=== PATIENT | female | born 1935 | race Caucasian/White ===

== ENCOUNTER 2018-02-05 12:49 | Emergency (ER) | payer MEDICARE, MEDICAID, SELFPAY ==
[2018-02-05 12:53] VITALS: BP 152/96; PULSE 97; RESP 18; TEMP 36.9; O2SAT 97; BMI 51.9
[2018-02-05 13:08] VITALS: O2SAT 100
--- NOTE | 2018-02-05 13:50 | CT_ITS ---
STUDY: CT CHEST WITHOUT CONTRAST REASON FOR EXAM: Female, 82 years old. FALL. RADIATION DOSAGE (If Supplied By Facility): CTDIvol = ( 27.63 ) mGy, DLP = ( 966.10 ) mGycm TECHNIQUE: Transaxial imaging was performed without the administration of intravenous contrast material. Individualized dose optimization techniques were used for this CT. COMPARISON: None. FINDINGS: The lungs are normal. There is trace right pleural effusion There is a small pericardial effusion. Normal mediastinum. Normal hilar regions. Normal unenhanced pulmonary arteries. Normal aorta arch and descending thoracic aorta. There is a transverse mid body fracture involving anterior and posterior endplate at T7 (sagittal image #230 series 602). There are chronic rib fractures on the right. CT/Chest without Contrast IMPRESSION: No consolidation or pneumothorax. Trace right pleural effusion. Unstable T7 fracture. Further evaluation with MRI can be obtained. N.B. : The above information has been verbally conveyed by Adelaide Ayala MD to Nereyda Muñoz on 02/05/2018 15:16:56 (ET). Electronically Signed: Adelaide Ayala MD at 15:18 EDT Tel , Service support , N.B. : The above information has been verbally conveyed by Adelaide Ayala MD to Nereyda Muñoz on 02/05/2018 15:16:56 (ET).
--- NOTE | 2018-02-05 13:50 | CT_ITS ---
STUDY: CT BRAIN WITHOUT CONTRAST REASON FOR EXAM: Female, 82 years old. FALL RADIATION DOSAGE (If Supplied By Facility): CTDIvol = ( 20.80 ) mGy, DLP = ( 384.27 ) mGycm TECHNIQUE: Transaxial CT imaging of the brain was performed without administration of intravenous contrast material. Individualized dose optimization techniques were used for this CT. COMPARISON: None. FINDINGS: There is a large frontal scalp hematoma. There is cerebral atrophy with widening of the extra-axial spaces and ventricular dilatation. There are areas of decreased attenuation within the white matter tracts of the supratentorial brain, consistent with microvascular disease changes. There is no intracranial hemorrhage. There are no findings of an acute ischemic infarction. There is bilateral nasal bone fractures. CT/Brain/Head without Contrast IMPRESSION: Large frontal scalp hematoma. No demonstrated intracranial hemorrhage. Bilateral nasal bone fractures. Electronically Signed: Adelaide Ayala MD at 14:58 EDT Tel , Service support ,
--- NOTE | 2018-02-05 13:50 | CT_ITS ---
STUDY: CT CERVICAL SPINE WITHOUT CONTRAST REASON FOR EXAM: Female, 82 years old. FALL RADIATION DOSAGE (If Supplied By Facility): CTDIvol = ( 38.08 ) mGy, DLP = ( 833.44 ) mGycm TECHNIQUE: The patient was scanned in a multi detector CT scanner. High resolution transaxial imaging was performed. Sagittal and coronal images were reconstructed. Individualized dose optimization techniques were used for this CT. COMPARISON: None FINDINGS: There is normal cervical lordosis. There are no fractures of the cervical spine. The atlantoaxial relationships are normal.. Prevertebral soft tissues are within normal limits. There is multilevel endplate spondylosis of the vertebrae. There is multi-level degenerative disc disease with multi-level disc space narrowing. Normal visualized paraspinous soft tissue structures. CT/Spine Cervical without Contras IMPRESSION: No demonstrated fractures. Multilevel degenerative changes. Electronically Signed: Adelaide Ayala MD at 15:01 EDT Tel , Service support ,
--- NOTE | 2018-02-05 13:51 | CT_ITS ---
STUDY: CT ABDOMEN AND PELVIS WITHOUT CONTRAST REASON FOR EXAM: Female, 82 years old. FALL. RADIATION DOSAGE (If Supplied By Facility): CTDIvol = ( 27.63 ) mGy, DLP = ( 1361.57 ) mGycm TECHNIQUE: Transaxial images were obtained from the dome of the diaphragm to the symphysis pubis without oral contrast, and without intravenous contrast. Sagittal and coronal images were reconstructed. Individualized dose optimization techniques were used for this CT. COMPARISON: None. FINDINGS: The visualized lung bases are unremarkable. The visualized portions of the heart are within normal limits. Normal liver. There is non-visualization of the gallbladder, which may be secondary to either contraction or a prior cholecystectomy. There are multiple benign calcified granulomata of the spleen. Normal pancreas. Normal bilateral adrenal glands. 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 There is no hydronephrosis. There are surgical sutures at the stomachPatency Normal small intestine. Normal colon. The appendix is visualized and appears normal. There is diffuse atherosclerotic calcification of the abdominal aorta, without a demonstrated aneurysm. Normal inferior vena cava. Normal retroperitoneum. The bladder is decompressed with a Lu catheter. Normal abdominal wall. There are diffuse degenerative changes of the visualized lumbar spine. CT/Abdomen/Pelvis without Cont IMPRESSION: No acute intra-abdominal or intrapelvic abnormality. Horseshoe kidney with small nonobstructing kidney stones. Electronically Signed: Adelaide Ayala MD at 15:06 EDT Tel , Service support ,
[2018-02-05] MEDS: Ondansetron 4 MG/2 ML Vial IV ×2 (14:11→15:57)
[2018-02-05] MEDS: Morphine 2 MG/ML Syringe IV (14:11)
[2018-02-05 14:13] LABS: Absolute Neutrophil Count 7.1 X10^3/uL (2.0-7.7); Basophil# 0.02 X10^3/uL; Basophil% 0.2 % (0-1); Eosinophil# 0.05 X10^3/uL; Eosinophils% 0.6 % (0-5); Hematocrit 35.5 % (37-47); Hemoglobin 11.4 g/dl (12.0-15.0); Lymphocyte % 8.1 % (19-41); Mean Corp Hgb Conc 32.1 g/gl (32-36); Mean Corpuscular Hgb 30.3 pg (27.0-32.0); Mean Corpuscular Volume 94.4 fL (81-99); Mean Platelet Vol. 11.7 fl (6.2-12.0); Monocyte# 0.65 X10^3/uL; Monocyte% 7.6 % (0-10); Neutrophil # 7.11 X10^3/uL (2.7-7.7); Neutrophil % 82.7 % (47-70); Platelet Count 155 K/mm3 (150-450); RBC Distribution Width CV 13.5 % (11.6-14.6); RBC Distribution Width SD 44.4 fl (35.1-43.9); Red Blood Count 3.76 M/mm3 (4.2-5.4); White Blood Count 8.6 K/mm3 (4.4-11.0)
[2018-02-05 14:17] LABS: POSITIVE COUNT NO; POSITIVE DIFFERENTIAL NO; POSITIVE MORPHOLOGY NO
[2018-02-05 14:21] LABS: International Normalized Ratio 1.2; Prothrombin Time (Protime)PT. 14.7 SECONDS (11.7-14.9)
[2018-02-05 14:22] LABS: Partial Thromboplast Time 25.8 Seconds (24.1-36.2)
[2018-02-05 14:28] LABS: Anion Gap 9 (5-15); BUN 16 mg/dL (7-18); BUN/Creat Ratio 16.6 RATIO (10-20); Calcium,Total 8.8 mg/dL (8.5-10.1); Chloride 107 mmol/L (98-107); Creatinine, Serum 0.96 mg/dL (0.55-1.02); EST Glomerular Filtration Rate 59 mL/min (>60); Est Glom Filt Rate - Afr Amer 71 mL/min (>60); Estimated Creatinine Clearance 37.37 ml/min; Glucose 137 mg/dL (74-106); Potassium 4.7 mmol/L (3.5-5.1); Sodium Level 142 mmol/L (136-145)
--- NOTE | 2018-02-05 15:34 | ED.VISSUMM ---
- ER Visit Summary Date of Service: 02/05/18 Chief Complaint: Fall History of Present Illness: The patient is a 82 F who fell from her wheelchair today. Apparently the wheelchair started rolling down a hill. The chair stopped the patient fell forward. She is complaining of facial pain, neck pain, and back pain. Patient is currently on Eliquis for a history of A. fib. Denies loss of consciousness. Physical Examination: Vital signs are unremarkable. Patient's immobilized on a spine board. Head and neck examination is significant for large forehead hematoma with abrasion. She has periorbital ecchymosis and swelling. There is a superficial laceration across the nasal bridge on the left. No focal C-spine tenderness. Heart is regular rate and rhythm. Lung sounds are clear. Abdomen is soft and nontender. She has an indwelling Lu catheter. Extremity examination reveals normal range of motion upper extremities. She is able to wiggle toes. Test Results: 0, white count with hemoglobin 11.4. Chemistry studies normal. Coags normal. CT the head shows a large frontal scalp hematoma. There is no intracranial hemorrhage. Bilateral nasal bone fractures are noted. CT the C-spine shows no fracture. CT abdomen pelvis shows no acute injury. Horseshoe kidney is appreciated. Chest CT shows an unstable T7 fracture with a transverse mid body fracture from anterior to posterior endplate. Emergency Department Course and Treatment: Patient was given a small dose of morphine and Zofran for pain here. Patient states all of her doctors are [facility] and she would prefer to go there. I spoke with the ER doctor for trauma transfer. Patient will be given 0.5 mg as of Dilaudid and Zofran prior to transfer. Treatment Plan: [] Disposition:Transfer Impression: 1. Fall 2. Closed head injury 3. Forehead hematoma 4. Nasal bone fracture 5. T7 fracture This note was generated with [employer] dictation software. It may contain incorrect words, spelling, and punctuation that were not noted in review of the chart prior to signing ED Disposition - Plan for ED Patient: Chief Complaint: Fall Referrals: Lula Koenig [Primary Care Provider] -
--- NOTE | 2018-02-05 15:37 | ED.DCSUM_ITS ---
- ER Visit Summary Date of Service: 02/05/18 Chief Complaint: Fall History of Present Illness: The patient is a 82 F who fell from her wheelchair today. Apparently the wheelchair started rolling down a hill. The chair stopped the patient fell forward. She is complaining of facial pain, neck pain , and back pain. Patient is currently on Eliquis for a history of A. fib. Denies loss of consciousness. Physical Examination: Vital signs are unremarkable. Patient's immobilized on a spine board. Head and neck examination is significant for large forehead hematoma with abrasion. She has periorbital ecchymosis and swelling. There is a superficial laceration across the nasal bridge on the left. No focal C-spine tenderness. Heart is regular rate and rhythm. Lung sounds are clear. Abdomen is soft and nontender. She has an indwelling Lu catheter. Extremity examination reveals normal range of motion upper extremities. She is able to wiggle toes. Test Results: 0, white count with hemoglobin 11.4. Chemistry studies normal. Coags normal. CT the head shows a large frontal scalp hematoma. There is no intracranial hemorrhage. Bilateral nasal bone fractures are noted. CT the C- spine shows no fracture. CT abdomen pelvis shows no acute injury. Horseshoe kidney is appreciated. Chest CT shows an unstable T7 fracture with a transverse mid body fracture from anterior to posterior endplate. Emergency Department Course and Treatment: Patient was given a small dose of morphine and Zofran for pain here. Patient states all of her doctors are [facility] and she would prefer to go there. I spoke with the ER doctor for trauma transfer. Patient will be given 0.5 mg as of Dilaudid and Zofran prior to transfer. Treatment Plan: [] Disposition:Transfer Impression: 1. Fall 2. Closed head injury 3. Forehead hematoma 4. Nasal bone fracture 5. T7 fracture This note was generated with [employer] dictation software. It may contain incorrect words, spelling, and punctuation that were not noted in review of the chart prior to signing ED Disposition - Plan for ED Patient: Chief Complaint: Fall Referrals: Lula Koenig [Primary Care Provider] -
--- NOTE | 2018-02-05 15:39 | NURSING ---
CALLED [facility]. ETA IS FROM [place], 20 TO 25 MIN
[2018-02-05] MEDS: HYDROmorphone 1 MG/ML Syringe 0.5 MG IV (15:56)
[2018-02-05 16:26] VITALS: BP 107/87; PULSE 100; RESP 17; O2SAT 100
== END 2018-02-05 16:28 | disposition short-term general hospital (02) ==
PROVIDERS: Emergency Provider Emergency Medicine; Family Provider Internal Medicine Geriatric Medicine; PCP Internal Medicine Geriatric Medicine
DX: S02.2XXA Fracture of nasal bones, initial encounter for closed fracture (principal); S00.83XA Contusion of other part of head, initial encounter; S01.21XA Laceration without foreign body of nose, initial encounter; S22.069A Unspecified fracture of T7-T8 vertebra, initial encounter for closed fracture; Q63.1 Lobulated, fused and horseshoe kidney; E66.9 Obesity, unspecified; W19.XXXA Unspecified fall, initial encounter; Y93.9 Activity, unspecified; Y92.9 Unspecified place or not applicable; Z96.0 Presence of urogenital implants; F03.90 Unspecified dementia, unspecified severity, without behavioral disturbance, psychotic disturbance, mood disturbance, and anxiety; J44.9 Chronic obstructive pulmonary disease, unspecified; G47.33 Obstructive sleep apnea (adult) (pediatric); I48.91 Unspecified atrial fibrillation; Z79.01 Long term (current) use of anticoagulants; Z79.899 Other long term (current) drug therapy
CPT/HCPCS: 70450; 71250; 72125; 74176; 80048; 85025; 85610; 85730; 96374; 96375; 96376; 99285; A4216; J2405

== ENCOUNTER 2019-11-03 13:19 | Outpatient (RCR) | payer MEDICARE, MEDICAID, SELFPAY ==
--- NOTE | 2019-11-04 08:43 | HP.OTEVAL_ITS ---
Patient's Visit Information DILIP MONK is a 83 year old F, referred to Occupational Therapy by Abelino Garcia MD, with a diagnosis of lymphedmea. Date of Evaluation: 11/03/19 Occupational Therapist: Carla Hunt, PAULINE/Praveen, CHT - Subjective Subjective: This 83 year old female was seen for OT eval for dx. lymphedema for last 6 weeks her swelling has been worse- pt states she has had lymphedema tx in the past but feel is has been at least 6 years or more. Pt states she has wraps but due to OA in her hands shd is unable to wrap her LE. 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 Due to pts limitations has requeted lymphedema pump to assist with mtg swelling. - Lymphedema (Circumferential Measure) Mid-foot: right 21 left 21cm Ankle: right 27cm left 28cm Lower calf: right 27cm left 33cm Largest calf: right 54cm left 49cm Below knee: right 54cm left 44 Above knee: right 59cm left 59 cme - Goals Demonstrate a 20% reduction in edema by d/c: Yes Demonstrate adequate knowledge therapeutic exercises by d/c: Yes Select approp compression garment w/donning/care/wear by d/c: Yes Voice need to replace compression garment every 4-6mo by dc: Yes - Rehabilitation General Assessment: Due to pts decline in her functional ability to mtg her LE lymphedma pt would benefit from skilled OT services 2-3 visits to ed pt on lymph stim ex, compression garments and compression alternatives vs wrapping. Today pt ed. pt on lymph stim ex, pt was reluctant to perform exercises due to OA that has affected her neck, shoulder and truck motion. Therapist advised pt to perform ex in he comfort ROM - and that ex is to stim. lymph fluid circulation only. pt demo understanding. Therapist also ed. pt on compression socks and compression alternatives. Pt was given handout and agree to POC. Due to pts OA that is affecting her ability to perform her mtg of her lymphedema pt may benefit from pneumatic Rehabilitation Potential: Questionable - Anticipated Interventions Anticipated Interventions: Education re Diagnosis, Education re Life-long lymphedema Management, Education re Correct Donning Tech,Care&Wearing Sched Comp Garments, Home Program - Visit Plan TEXT: Thank you for the opportunity to evaluate your patient. For Medicare and Medicare HMO plans, please review the plan of care and approve it. It will need to be FAXED BACK to us at [phone] for Medicare purposes. Please let me know if there are questions or concerns regarding this plan of care. Physician Signature: Date:
--- NOTE | 2020-02-27 09:16 | HP.OT.NRP ---
DILIP MONK was seen in my office for initial evaluation on 11/03/19. The following Plan of Care was established for this patient: Anticipated Interventions: Education re Diagnosis, Education re Life-long lymphedema Management, Education re Correct Donning Tech,Care&Wearing Sched Comp Garments, Home Program This patient was last seen in our office 11/03/19. Pertinent comments regarding their Occupational therapy will appear below: pt was seen for eval only- no further apts were scheduled pt is d/c due to time lapse in services. At this point I will be discontinuing this patient from occupational therapy. I would be happy to see this patient again in the future if found appropriate by the physician. Thank you! Carla Hunt, OTR/L, CHT
== END 2019-11-03 19:00 | disposition home or self-care (01) ==
LOC: OT 13:19
PROVIDERS: Family Provider Internal Medicine Geriatric Medicine; PCP Internal Medicine Geriatric Medicine; Referring Provider Dermatology; Visit Provider Dermatology
DX: I89.0 Lymphedema, not elsewhere classified (principal)
CPT/HCPCS: 97110; 97166; 97530